=== PATIENT | male | born 1990 | race Caucasian/White ===

== ENCOUNTER 2024-05-22 12:08 | Emergency (ER) | payer OTHER | END 2024-05-22 13:14 | LOC: VM.ED 12:08 | DX: S40.012A Contusion of left shoulder, initial encounter (principal); S00.412A Abrasion of left ear, initial encounter; S10.91XA Abrasion of unspecified part of neck, initial encounter; Y04.8XXA Assault by other bodily force, initial encounter; Y92.149 Unspecified place in prison as the place of occurrence of the external cause | CPT/HCPCS: 73010-LT; 73030-LT; 99283; 99284 ==